=== PATIENT | female | born 1995 | race Caucasian/White ===

== ENCOUNTER → 2016-05-05 | Outpatient (CLI) | payer OTHER ==
[~2016-05-05] MED LIST: DEXILANT60 MG PO; ENTOCORT EC3 MG PO; MACROBID 1100 MG/CAP PO; MINASTRIN PO; NORCO 325 MG-51 TAB PO; PERCOCET 325 MG1 TA2 PO; PRIL40 PO; TAYTULLA 1 MG-1 EACH PO; ZANTAC 150MG T150 MG PO; ZOFRAN ODT4 MG PO; ZOLOFT 50MG50 MG PO
== END ==
LOC: COL.RAD 09:24
DX: S84.10XA Injury of peroneal nerve at lower leg level, unspecified leg, initial encounter (principal); X58.XXXA Exposure to other specified factors, initial encounter
CPT/HCPCS: A9503

== ENCOUNTER 2016-10-03 21:45 | Emergency (ER) | payer OTHER ==
[~2016-10-03] VITALS: Ht 170.2 cm; Wt 100.0 kg
[~2016-10-03 21:45] MED LIST changes: -MACROBID 1100 MG/CAP PO; -TAYTULLA 1 MG-1 EACH PO
[2016-10-03 21:47] VITALS: TEMP 98.7
[2016-10-03] MEDS ORDERED: TAYTULLA 1 MG-1 EACH PO (21:51)
[2016-10-03 22:23] LABS: BASO % 0.2 % (0.0-2.0); EOS # 0.1 (0.0-0.7); EOS % 0.9 % (0-4.0); GRAN # 5.4 (1.4-6.5); GRAN % 59.2 % (42.2-75.2); HEMATOCRIT 40.3 % (37.0-47.0); HEMOGLOBIN 13.4 g/dl (12.5-16.0); LYMPH % 32.5 % (20.0-51.0); MEAN CELL VOLUME 88 fl (80.0-100.0); MEAN CORPUSCULAR HEMOGLOBIN 29 pg (27.0-31.0); MEAN CORPUSCULAR HGB CONC 33 g/dl (33.0-37.0); MEAN PLATELET VOLUME 10.4 fl (7.4-10.4); MONO # 0.6 (0.1-0.6); MONO % 6.9 % (1.7-9.3); PLATELET COUNT 314 K/mm3 (130-400); RED BLOOD COUNT 4.57 M/mm3 (4.10-5.30); REDCELL DISTRIBUTION WIDTH-CV 12.7 % (11.5-14.5); WHITE BLOOD COUNT 9.1 K/mm3 (4.8-10.8)
[2016-10-03 22:32] LABS: ADJUSTED CALCIUM 9.2 mg/dL (8.4-10.2); BILIRUBIN,TOTAL 0.5 mg/dL (0.0-1.0); C-REACTIVE PROTEIN 2.2 mg/dL (0.0-0.9); CALCIUM 9.2 mg/dL (8.4-10.2); CREATININE, serum 1.05 mg/dL (0.52-1.25); POTASSIUM 3.8 mmol/L (3.4-5.0); TOTAL PROTEIN 7.3 gm/dL (6.4-8.2)
[2016-10-03 22:34] LABS: PH 5 (5-8); URINE APPEARANCE Cloudy; URINE BACTERIA Rare /hpf; URINE BILIRUBIN Negative (NEGATIVE); URINE BLOOD 2+ (NEGATIVE); URINE COLOR Yellow; URINE GLUCOSE Negative (NEGATIVE); URINE KETONE Negative (NEGATIVE); URINE RBC >50 /hpf; URINE UROBILINOGEN Negative (NEGATIVE)
[2016-10-03 22:35] LABS: URINE WBC >50 /hpf
[2016-10-03] MEDS ORDERED: MACROBID 1100 MG/CAP PO (23:13)
[2016-10-03 23:25] VITALS: BP 121/81; PULSE 94
== END 2016-10-03 23:25 | disposition home or self-care (01) ==
LOC: COL.ER 21:45
PROVIDERS: Emergency Medicine
DX: R10.31 Right lower quadrant pain (principal)
CPT/HCPCS: J1170; J2405; J2550; J7030

== ENCOUNTER 2017-01-03 22:57 | Emergency (ER) | payer OTHER ==
[~2017-01-03] VITALS: Ht 167.6 cm; Wt 102.3 kg
[~2017-01-03 22:57] MED LIST changes: +MACROBID 1100 MG/CAP PO; +TAYTULLA 1 MG-1 EACH PO
[2017-01-03 23:04] VITALS: BP 125/82; TEMP 97.7
[2017-01-03 23:38] VITALS: PULSE 88
[2017-01-03] MEDS ORDERED: AMOXICILLIN 50500 MG PO (23:44)
== END 2017-01-03 23:42 | disposition home or self-care (01) ==
LOC: COL.ER 22:57
DX: H92.02 Otalgia, left ear (principal); K21.9 Gastro-esophageal reflux disease without esophagitis

== ENCOUNTER 2017-06-03 21:05 | Emergency (ER) | payer OTHER ==
[~2017-06-03] VITALS: Ht 167.6 cm; Wt 97.7 kg
[~2017-06-03 21:05] MED LIST changes: +AMOXICILLIN 50500 MG PO
[2017-06-03 21:09] VITALS: BP 121/71; TEMP 98.1
[2017-06-03 21:48] LABS: BASO % 0.4 % (0.0-2.0); EOS # 0.1 (0.0-0.7); EOS % 0.9 % (0-4.0); GRAN # 4.8 (1.4-6.5); GRAN % 61.2 % (42.2-75.2); HEMATOCRIT 42.4 % (37.0-47.0); LYMPH # 2.4 (1.2-3.4); LYMPH % 30.5 % (20.0-51.0); MEAN CELL VOLUME 89 fl (80.0-100.0); MEAN CORPUSCULAR HEMOGLOBIN 29 pg (27.0-31.0); MEAN CORPUSCULAR HGB CONC 33 g/dl (33.0-37.0); MEAN PLATELET VOLUME 10.1 fl (7.4-10.4); MONO # 0.5 (0.1-0.6); MONO % 6.9 % (1.7-9.3); PLATELET COUNT 318 K/mm3 (130-400); RED BLOOD COUNT 4.79 M/mm3 (4.10-5.30); REDCELL DISTRIBUTION WIDTH-CV 13.3 % (11.5-14.5)
[2017-06-03 21:55] LABS: COLLECTION METHOD CLEAN CATCH
[2017-06-03 22:00] LABS: BILIRUBIN,TOTAL 0.4 mg/dL (0.0-1.0); C-REACTIVE PROTEIN 5.1 mg/dL (0.0-0.9); CALCIUM 9.1 mg/dL (8.4-10.2); CREATININE, serum 0.87 mg/dL (0.52-1.25); POTASSIUM 4.2 mmol/L (3.4-5.0); TOTAL PROTEIN 7.5 gm/dL (6.4-8.2)
[2017-06-03 22:02] LABS: AMORPHOUS CRYSTAL Present /uL; MUCOUS Present /lpf; PH 5 (5-8); SQUAMOUS EPITHELIAL 0-2 /hpf; URINE APPEARANCE Turbid; URINE BACTERIA Rare /hpf; URINE BILIRUBIN Negative (NEGATIVE); URINE BLOOD Negative (NEGATIVE); URINE COLOR Amber; URINE GLUCOSE Negative (NEGATIVE); URINE KETONE Negative (NEGATIVE); URINE LEUKOCYTE ESTERASE 1+ (NEGATIVE); URINE NITRATE Negative (NEGATIVE); URINE PROTEIN(semi-quant) Negative (NEGATIVE); URINE UROBILINOGEN Negative (NEGATIVE)
[2017-06-04] MEDS ORDERED: ZOFRAN 4MG T4 MG/TAB PO (00:25)
[2017-06-04] MEDS ORDERED: NORCO 325 MG-51 TAB PO (00:25)
[2017-06-04] MEDS ORDERED: CARAFATE 1GM1 G PO (00:47)
[2017-06-04 01:05] VITALS: PULSE 75
== END 2017-06-04 01:05 | disposition home or self-care (01) ==
LOC: COL.ER 21:05
PROVIDERS: Emergency Medicine
DX: R10.84 Generalized abdominal pain (principal); R11.2 Nausea with vomiting, unspecified; R19.7 Diarrhea, unspecified; K21.9 Gastro-esophageal reflux disease without esophagitis; Z87.19 Personal history of other diseases of the digestive system
CPT/HCPCS: J2270; J2405; J7030; Q9967

== ENCOUNTER 2017-07-09 13:50 | Day surgery (SDC) | payer OTHER ==
[~2017-07-09] VITALS: Ht 167.6 cm; Wt 97.1 kg
[2017-07-09] VITALS (7 sets, daily range): BP systolic 106–119; BP diastolic 55–80; PULSE 67–85; TEMP 98.5–98.7
[~2017-07-09 13:50] MED LIST changes: +CARAFATE 1GM1 G PO; +ZOFRAN 4MG T4 MG/TAB PO
[2017-07-09] MEDS ORDERED: DEXILANT60 MG PO (14:51)
== END 2017-07-09 16:30 | disposition home or self-care (01) ==
LOC: SDCO 13:50
DX: K29.50 Unspecified chronic gastritis without bleeding (principal); K92.0 Hematemesis; Z87.11 Personal history of peptic ulcer disease; K58.9 Irritable bowel syndrome, unspecified
CPT/HCPCS: J2250; J3010; J7030